=== PATIENT | male | born 1935 | race African-American/Black ===

== ENCOUNTER → 2019-03-09 | Outpatient (CLI) | payer OTHER, MEDICARE | LOC: RAD 12:10 | DX: M47.816 Spondylosis without myelopathy or radiculopathy, lumbar region (principal); M43.16 Spondylolisthesis, lumbar region; R10.2 Pelvic and perineal pain; Z96.641 Presence of right artificial hip joint ==

== ENCOUNTER → 2019-04-11 | Outpatient (CLI) | payer OTHER, MEDICARE ==
[~2019-04-11] MED LIST: ARICEPT 5 MG TAB5 MG PO; COSOPT PF EYE1 EACH EA. EYE; FLOMAX0.4 MG PO; SYNTHROID88 MC1 PO; ZOCOR20 MG PO
== END ==
LOC: MRI 13:32
DX: M47.26 Other spondylosis with radiculopathy, lumbar region (principal); M51.16 Intervertebral disc disorders with radiculopathy, lumbar region; M48.061 Spinal stenosis, lumbar region without neurogenic claudication

== ENCOUNTER → 2019-04-22 | Outpatient (CLI) | payer OTHER, MEDICARE ==
[~2019-04-22] VITALS: Ht 167.6 cm; Wt 98.5 kg
[2019-04-22 13:10] VITALS: BP 133/73
--- NOTE | 2019-04-22 14:45 | NUR ---
Pain Clinic Assessment: 1. History of Osteoarthritis: HIPS SPINE History of Rheumatoid Arthritis: DENIES 2. Height: 5 ft. 6 in. 167.6 cm. Weight: 217.2 lb. oz. 98.521 kg. Patient's BMI: 35.1 3. Vital Signs: BP: 133/73 Pulse: 65 Resp: 16 Temp: 02 Sat: 100 ECG Mon: 4. Pain Intensity: 9 5. Fall Risk: Dizziness: N Needs help standing or walking: N Fallen in the last 3 months: N Fall risk comments: 6. Patient on Blood Thinner: None 7. History of Hypertension: N 8. Opioid Therapy greater than 6 weeks: N Opiate Contract Signed: 9. Risk Assessment Tool Provided: 10. Functional Assessment Tool: 11. Recreational Drug Use: Never Drug Type: Tobacco Use: Never Smoker Tobacco Type: Amount or Packs/day: How Many Years: Alcohol Use: No Frequency: Quant:
--- NOTE | 2019-05-13 08:25 | HPC ---
[facility] [address] [place] [address] PAIN MANAGEMENT CONSULTATION Name: CIRILO HUNT Room #: REG NITISH Damion.#: [id number] Admission: 04/22/19 Attend Phys: Mary Ann Mcintyre MD Discharge: Date of : 34 Report #: [id number] THIS REPORT FOR: //name// CC: Mary Ann Romero DATE OF SERVICE: 04/22/2019 CHIEF COMPLAINT: Back pain with pain down into the right leg. HISTORY: The patient is an 83-year-old gentleman who has been referred to the Pain Clinic for evaluation. He has been having pain and discomfort since the summer. The patient has an increase in his back pain since 02/2019. He notes now that the pain is more constant. The onset has been gradual, but increasing. Pain radiates down his right thigh and into his left thigh as well. Pain is worse with standing. Does live a somewhat sedentary lifestyle. He has not found significant improvement in his pain with the use of nonsteroidal anti-inflammatory medications. He has had hip surgery in the past. He does some remodeling work. States that lifting plywood seems to have exacerbated his discomfort. Notes that his pain improves and goes away after about 10 minutes of rest. He originally had some discomfort in the back area about 3-1/2 years ago. States, he was seen in the [facility]. ALLERGIES: No known drug allergies. MEDICATIONS: Aricept 5 mg, Flomax 0.4 mg, Synthroid 112 mcg, Namenda 10 mg 2 times daily, Crestor 10 mg 1 tablet, discontinued medications, Zocor 20 mg, Flomax 0.4 mg. PAST MEDICAL HISTORY: Back pain, hypertension, thyroid disease, hyperlipidemia, memory disorder, and arthritis. PAST SURGICAL HISTORY: Right hip surgery in 2016. 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 REVIEW OF SYSTEMS: Questionnaire diabetes, hypertension, and joint disease/arthritis. LABORATORY DATA: 1. MRI of the lumbar spine dated 04/11/2019 reveals L2-L3 severe bilateral facet hypertrophy, ligamentum flavum hypertrophy and broad-based posterior disk bulge resulting in a spinal central canal stenosis with AP diameter of 5.3 mm and mild bilateral neural foraminal narrowing. 2. L3-L4 broad-based posterior disk bulge, bilateral facet hypertrophy and ligamentum flavum hypertrophy resulting in severe central canal stenosis with AP [address] [address] PAIN MANAGEMENT CONSULTATION Name: GILBERT HUNTJuan Pablo Chandler Room #: REG CL Damion.#: [id number] Admission: 04/22/19 Attend Phys: Mary Ann Mcintyre MD Discharge: Date of : 34 Report #: [id number] diameter and central canal of 6.5 mm and [id number] bilateral neural foraminal narrowing. 3. L4-L5 severe disk height loss, broad-based posterior disk bulge, bilateral facet hypertrophy and ligamentum flavum hypertrophy resulting in no significant canal stenosis or neural foraminal narrowing. 4. L5-S1. No significant central canal stenosis or neural foraminal narrowing. PAIN CLINIC ASSESSMENT/PQRS: 1. Osteoarthritic changes in his hip and spine. 2. The patient denies treatment for rheumatoid arthritis. 3. Height 5 feet 6 inches, weight 217 pounds, BMI is 35.1. 4. Vital Signs: Blood pressure 133/73, pulse 65, respiratory rate 16, and room air saturation 100%. 5. Pain intensity, 9/10. 6. Fall risk. The patient has not fallen in the last 3 months. 7. Blood thinner. The patient is not on a blood thinning medication. 8. Hypertension. The patient is being treated for hypertension. 9. Opioids greater than 6 weeks. 10. Risk assessment tool, low for opioid use. 11. Functional assessment tool, . 12. Recreational drug use: The patient denies. 13. Tobacco: The patient has never smoked. 14. Alcohol: The patient denies frequent use of alcoholic beverages. PHYSICAL EXAMINATION: GENERAL: The patient is a well-developed black male, appears his stated age of 83 years. He is alert and oriented. His speech is appropriate. Appears to be aware of clear and person, place and condition. HEART: Regular rate. ABDOMEN: Nontender. LUNGS: Generally clear to auscultation. NECK: Without JVD or adenopathy. MUSCULOSKELETAL: The patient is without significant scoliosis, kyphosis or lordosis. The patient has pain and discomfort across the L4-L5 portion of his back with prolonged standing, which increases and decreases after resting. Has some pain that radiates down into the right and left legs. Has some pain and discomfort in the right shoulder with some decreased range of motion. EXTREMITIES: Upper extremity muscle strength judged to be 5-/5 for the major muscle groups in the upper extremity. Lower extremity muscle strength judged to be 5-/5 for the major muscle groups in the lower extremity. IMPRESSION: 1. Spinal stenosis with clinical findings of spinal stenosis with increased pain with standing. Pain resolves in about 10 minutes after sitting and resting. 2. Back pain. [facility] [address] [place] [address] PAIN MANAGEMENT CONSULTATION Name: CIRILO HUNT Room #: REG [facility] Damion#: [id number] Admission: 04/22/19 Attend Phys: Mary Ann Mcintyre MD Discharge: Date of : 34 Report #: [id number] 3. Hypertension. 4. Thyroid disease. 5. Hyperlipidemia. 6. Memory disorder. 7. Arthritis. RECOMMENDATIONS: We discussed treatment options with the patient. The patient's MRI was reviewed with the patient. A screen was used, which provided the patient's MRI. We reviewed item for item the findings on the MRI. The patient appears to understand after seeing the pathology on the MRI. Risks and benefits of an epidural steroid injection were discussed. They include but are not limited to infection, worsening pain, no improvement in pain, spinal headache, nerve damage and the patient elects to proceed. PROCEDURE NOTE: The patient was taken to the procedure area. He was then assisted in getting on the examination table. His back was sterilely prepped with a Betadine solution at the L4-L5 area. A 0.25% bupivacaine was infiltrated into this area to anesthetize the area. A total of 80 mg Depo-Medrol, 40 mg triamcinolone and 2 mL of 0.25% bupivacaine was injected. The patient tolerated the procedure well. A total of 12 seconds fluoroscopy time was used. The patient's pain was 0 at the time of discharge. He will follow up in the future as needed. We would like to thank you for letting us participate in his care. We hope he continues to improve. <ELECTRONICALLY SIGNED> By: Mary Ann Mcintyre MD 05/13/19 0825 [id number] Mary Ann Mcintyre MD /nt
== END | disposition home or self-care (01) ==
LOC: PAIN 07:00
DX: M54.16 Radiculopathy, lumbar region (principal); M19.90 Unspecified osteoarthritis, unspecified site; E07.9 Disorder of thyroid, unspecified; Z96.641 Presence of right artificial hip joint; Z79.899 Other long term (current) drug therapy; Z98.890 Other specified postprocedural states

== ENCOUNTER → 2019-06-27 | Outpatient (CLI) | payer OTHER, MEDICARE | LOC: ULTRA 10:16 | DX: K76.89 Other specified diseases of liver (principal); R16.0 Hepatomegaly, not elsewhere classified; N28.1 Cyst of kidney, acquired ==

== ENCOUNTER → 2019-07-15 | Outpatient (CLI) | payer OTHER, MEDICARE ==
[~2019-07-15] VITALS: Ht 167.6 cm; Wt 96.4 kg
[~2019-07-15] MED LIST changes: +IBUPROFEN200 M1 PO
[2019-07-15 12:38] VITALS: BP 137/99
--- NOTE | 2019-07-15 12:57 | NUR ---
Pain Clinic Assessment: 1. History of Osteoarthritis: HIPS SPINE History of Rheumatoid Arthritis: DENIES 2. Height: 5 ft. 6 in. 167.6 cm. Weight: 212.6 lb. oz. 96.435 kg. Patient's BMI: 34.3 3. Vital Signs: BP: 137/99 Pulse: 60 Resp: 18 Temp: 02 Sat: 99 ECG Mon: 4. Pain Intensity: 9 5. Fall Risk: Dizziness: N Needs help standing or walking: N Fallen in the last 3 months: N Fall risk comments: 6. Patient on Blood Thinner: None 7. History of Hypertension: N 8. Opioid Therapy greater than 6 weeks: N Opiate Contract Signed: 9. Risk Assessment Tool Provided: 10. Functional Assessment Tool: 11. Recreational Drug Use: Never Drug Type: Tobacco Use: Never Smoker Tobacco Type: Amount or Packs/day: How Many Years: Alcohol Use: No Frequency: Quant:
--- NOTE | 2019-07-27 16:47 | HPC ---
[facility] [address] [address] PAIN MANAGEMENT CONSULTATION Name: CIRILO HUNT Room #: REG NITISH Jairo#: [id number] Admission: 07/15/19 Attend Phys: Mary Ann Mcintyre MD Discharge: Date of : 34 Report #: [id number] THIS REPORT FOR: //name// CC: Mary Ann Romero DATE OF SERVICE: 07/15/2019 CHIEF COMPLAINT: Pain in the right shoulder. HISTORY: The patient is an 83-year-old gentleman who has been followed in the pain clinic in the past. He initially was seen because of pain in the low back area and underwent an epidural steroid injection. He has a new pain today. Involves his right shoulder. He has noted some decreased range of motion in the right shoulder area. He has noticed that it has worsened over the past 2 months. He denies any real trauma to the area. Rates the pain as a 9/10. He has noticed some decreased ability to raise the arm above the horizon. He feels that an injection in the shoulder area could be beneficial. He still remains active. He does some remodeling work. With lifting and bending, this has exacerbated the pain and discomfort he has been experiencing. ALLERGIES: No known drug allergies. CURRENT MEDICATIONS: Aricept 5 mg, Flomax 0.4 mg, Synthroid 112 mcg, Namenda 10 mg 2 times daily, Crestor 10 mg 1 tablet. PAIN CLINIC ASSESSMENT AND PQRS: 1. Osteoarthritis. The patient has some osteoarthritic changes in his hips as well as in his spine. He denies being treated for rheumatoid arthritis. 2. Height 5 feet 6 inches, weight 212 pounds, BMI is 34.3. 3. Vital signs: Blood pressure 137/99, pulse 60, respiratory rate 18, room air saturation 99%. 4. Pain intensity, 9/10 in the right shoulder. 5. Fall risk, the patient has not fallen since we saw him last. 6. Blood thinner, the patient is not on a blood thinning medication. 7. Hypertension, the patient is being treated for hypertension. 8. Opioids greater than 6 weeks. The patient is not on a regular opioid regimen. 9. Risk assessment tool, low for opioid use. 10. Functional assessment tool. 11. Recreational drug use, the patient denies. 12. Tobacco, the patient has never smoked. 13. Alcohol, the patient denies frequent use of alcoholic beverages. PHYSICAL EXAMINATION: GENERAL: The patient is a well-developed, well-nourished, black male. Appears [address] [address] PAIN MANAGEMENT CONSULTATION Name: CIRILO HUNT [id number] Admission: 07/15/19 Attend Phys: Mary Ann Mcintyre MD Discharge: Date of : 34 Report #: [id number] his stated age. He is alert and oriented x 3. His affect is appropriate. Speech is fluent. HEENT: Normocephalic, atraumatic. Extraocular eye muscles intact. Sclerae nonicteric. Mucous membranes are moist. MUSCULOSKELETAL: The patient has some decreased range of motion in his left shoulder. He has pain and discomfort within the area of the deltoid. Palpation in the area near the biceps tendon is exquisitely tender to touch. Movement of this area with my finger on the biceps tendon does reproduce a component of his pain. The patient without significant scoliosis, kyphosis or lordosis. Upper extremity muscle strength judged to be 5-/5 for the major muscle groups on the left and 4+ strength on the right. IMPRESSION: 1. Right shoulder pain with soreness and tenderness in the area of the biceps tendon. 2. History of spinal stenosis in the lumbar area. 3. Hypertension. 4. Thyroid disease. 5. Hyperlipidemia. 6. Memory disorder. 7. Arthritis. RECOMMENDATIONS: We discussed treatment options with the patient. Risks and benefits of injection to the trigger point in the area of the right biceps tendon was discussed. Possible complications of the procedure, which could include but are not limited to infection, worsening of pain, nerve damage, joint damage and the patient elects to proceed. PROCEDURE NOTE: The patient was taken to the procedure area. He was placed in the supine position. His right shoulder area was sterilely prepped with a chlorhexidine solution and allowed to dry. A trigger point was noted in the area of the right biceps tendon and near the deltoid muscle. This trigger point was noted. A skin wheal was placed at the skin level with 0.25% bupivacaine. A 25-gauge needle was then advanced into the area of the trigger point. The patient states this did reproduce his discomfort. Aspiration was negative. A total of 40 mg triamcinolone was injected. The patient's pain decreased from 9-0 at the time of discharge. He will follow up in the future as needed. We would like to thank you for letting us participate in his care. We hope he continues to improve. <ELECTRONICALLY SIGNED> By: Mary Ann Mcintyre MD 07/27/19 [id number] Mary Ann Mcintyre MD /TRINH
== END | disposition home or self-care (01) ==
LOC: PAIN 06:55
DX: M79.18 Myalgia, other site (principal); M25.511 Pain in right shoulder; G89.29 Other chronic pain; I10 Essential (primary) hypertension; E78.5 Hyperlipidemia, unspecified; M19.90 Unspecified osteoarthritis, unspecified site; E07.9 Disorder of thyroid, unspecified; Z98.890 Other specified postprocedural states; Z79.899 Other long term (current) drug therapy